=== PATIENT | female | born 1935 | race Caucasian/White ===

== ENCOUNTER 2019-01-31 10:40 | Inpatient (IN) ==
[2019-01-31 13:23] LABS: Basophils # (auto) 0.02 K/uL (0-0.2); Basophils % (auto) 0.5 %; Eosinophils # (auto) 0.02 K/uL (0-0.5); Eosinophils % (auto) 0.5 %; Hematocrit (blood only) 33.3 % (37-47); Hemoglobin 11.1 g/dL (12.0-16.0); Lymphocytes # (auto) 1.03 K/uL (1.2-3.4); Lymphocytes % (auto) 24.9 %; Mean Corpuscular Hemoglobin 30.5 pg (25-34); Mean Corpuscular Hgb Conc 33.3 g/dL (32-36); Mean Corpuscular Volume 91.5 fL (80-100); Monocytes # (auto) 0.21 K/uL (0.11-0.59); Monocytes % (auto) 5.1 %; Neutrophils # (auto) 2.86 K/uL (1.4-6.5); Platelet Count 176 K/uL (130-400); RDW Coefficient of Variation 13.2 % (11.5-14.5); RDW Standard Deviation 43.9 fL (36.4-46.3); Red Blood Count 3.64 M/uL (4.2-5.4); White Blood Count 4.14 K/uL (4.8-10.8)
--- NOTE | 2019-01-31 13:29 | XRay Report ---
XR chest 1V portable CLINICAL HISTORY: Atypical chest pain COMPARISON STUDY: No previous studies for comparison. FINDINGS: The heart is the upper limits of normal in size. The patient is mildly hyperinflated. There is no focal pulmonary consolidation. There is no failure. There are no pleural effusions. There is a thoracic dextroscoliosis. Arthritic changes are present within the shoulders.[ IMPRESSION: No active disease in the chest. Electronically signed by: Barak Valles M.D. 01/31/2019 1:28 PM
[2019-01-31 13:33] LABS: Prothrombin Time 10.7 Seconds (9.0-12.0)
[2019-01-31 13:48] LABS: Alanine Aminotransferase 20 U/L (12-78); Albumin Level 3.2 gm/dl (3.4-5.0); Aspartate Aminotransferase 15 U/L (15-37); BUN Creatinine Ratio 18.4 (10-20); Blood Urea Nitrogen 11 mg/dl (7-18); Calcium 8.5 mg/dl (8.5-10.1); Carbon Dioxide 26 mmol/L (21-32); Chloride 110 mmol/L (98-107); Creatinine Clr Calc Pharmacy 77.3 ml/min; Est GFR (African American) 98.8; Est GFR (Non-African American) 85.2; Glucose 99 mg/dl (70-99); Lipase 75 U/L (73-393); Magnesium 2.1 mg/dl (1.8-2.4); Potassium 3.6 mmol/L (3.5-5.1); Sodium 143 mmol/L (136-145)
[2019-01-31 13:59] LABS: Albumin Globulin Ratio 0.9 (0.9-2); Alkaline Phosphatase 108 U/L (45-117); Bilirubin,Total 0.7 mg/dl (0.2-1); Globulin 3.4 gm/dl (2.5-4.0); Phosphorus 2.1 mg/dl (2.5-4.9); Thyroid Stimulating Hormone 0.255 uIu/ml (0.300-4.500); Total Protein 6.6 gm/dl (6.4-8.2); Troponin I < 0.015 ng/ml (0-0.045)
[2019-01-31 14:10] LABS: T4 Free Thyroxine 1.36 ng/dl (0.8-1.6)
[2019-01-31 14:13] LABS: Appearance Urine Clear (Clear); Bilirubin Urine Negative (Negative); Blood Urine Negative (Negative); Color Urine Yellow; Glucose Urine UA Negative (Negative); Ketones Urine 2+ (Negative); Leukocyte Esterase Urine Negative (Negative); Nitrite Urine Negative (Negative); Protein Urine Negative (Negative); Specific Gravity Urine 1.015 (1.000-1.030); Urobilinogen Urine Negative (Negative)
[2019-01-31] MEDS ORDERED: POT PHOSPHATE MONOBASIC W/ SOD TAB PO STA (14:13)
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
[2019-01-31] MEDS ORDERED: OXYCODONE/ACETAMINOPHEN 5mg/325mg TAB PO PRN (22:13)
[2019-01-31] MEDS ORDERED: POLYETHYLENE (MIRALAX) 17 GM PACK PO PRN (22:13)
[2019-01-31] MEDS ORDERED: ONDANSETRON INJ 2 MG/ML 2 ML VIAL IV PRN (22:13)
[2019-01-31] MEDS ORDERED: ZOLPIDEM TARTRATE 5 MG TAB PO PRN (22:13)
[2019-01-31] MEDS ORDERED: ALUMINUM/MAGNESIUM SUSP 30 ML UDC PO PRN (22:13)
[2019-01-31] MEDS ORDERED: MAGNESIUM HYDROXIDE SUSP 30 ML UDC PO PRN (22:13)
[2019-01-31] MEDS: clonazePAM 1 MG TAB PO SCH (23:34)
[2019-01-31] MEDS: cloNIDine HCL 0.1 MG TAB PO SCH (23:34)
[2019-01-31] MEDS: carvediloL 12.5 MG TAB PO SCH (23:34)
[2019-01-31] MEDS: ENOXAPARIN INJ 40 MG/0.4 ML SYR SQ SCH (23:41)
[2019-02-01 04:24] LABS: Basophils # (auto) 0.02 K/uL (0-0.2); Basophils % (auto) 0.4 %; Eosinophils # (auto) 0.06 K/uL (0-0.5); Eosinophils % (auto) 1.2 %; Hematocrit (blood only) 32.1 % (37-47); Hemoglobin 10.7 g/dL (12.0-16.0); Lymphocytes # (auto) 2.03 K/uL (1.2-3.4); Mean Corpuscular Hemoglobin 30.8 pg (25-34); Mean Corpuscular Hgb Conc 33.3 g/dL (32-36); Mean Corpuscular Volume 92.5 fL (80-100); Mean Platelet Volume 9.9 fL (7.4-10.4); Monocytes # (auto) 0.42 K/uL (0.11-0.59); Monocytes % (auto) 8.7 %; Neutrophils % (auto) 47.7 %; Platelet Count 173 K/uL (130-400); RDW Coefficient of Variation 13.3 % (11.5-14.5); RDW Standard Deviation 44.8 fL (36.4-46.3); Red Blood Count 3.47 M/uL (4.2-5.4); White Blood Count 4.83 K/uL (4.8-10.8)
[2019-02-01 04:41] LABS: Alanine Aminotransferase 19 U/L (12-78); Albumin Level 2.9 gm/dl (3.4-5.0); Aspartate Aminotransferase 16 U/L (15-37); BUN Creatinine Ratio 16.1 (10-20); Blood Urea Nitrogen 10 mg/dl (7-18); Calcium 8.1 mg/dl (8.5-10.1); Carbon Dioxide 27 mmol/L (21-32); Chloride 112 mmol/L (98-107); Creatinine Clr Calc Pharmacy 70.7 ml/min; Est GFR (African American) 95.6; Est GFR (Non-African American) 82.5; Glucose 98 mg/dl (70-99); Potassium 3.6 mmol/L (3.5-5.1); Sodium 146 mmol/L (136-145)
[2019-02-01 04:50] LABS: Alkaline Phosphatase 94 U/L (45-117); Bilirubin,Total 0.5 mg/dl (0.2-1); Chol HDL Ratio 3; Cholesterol 119 mg/dl (0-200); HDL Cholesterol 44 mg/dl; LDL Cholesterol Calculated 58 mg/dl; NT Pro B Type Natriuretic Pept 283 pg/ml (0-1800); Phosphorus 3.6 mg/dl (2.5-4.9); Total Protein 5.9 gm/dl (6.4-8.2); Triglycerides 85 mg/dl (0-150); Troponin I < 0.015 ng/ml (0-0.045); VLDL Cholesterol 17 mg/dl
[2019-02-01 06:30] LABS: Estimated Average Glucose 114 mg/dl; Hemoglobin A1C 5.6 % (4.5-5.6)
[2019-02-01] MEDS ORDERED: PERFLUTREN LIPID MICROSPHERE (DEFINITY) IV ONE (07:04)
[2019-02-01] MEDS: carvediloL 12.5 MG TAB PO SCH (08:40)
[2019-02-01] MEDS: cloNIDine HCL 0.1 MG TAB PO SCH ×2 (08:40→14:23)
[2019-02-01] MEDS: clonazePAM 1 MG TAB PO SCH (08:40)
[2019-02-01] MEDS: FLUTICASONE PROPIONATE NA SPR 16 GM BTL NAE SCH (08:40)
[2019-02-01] MEDS: ISOSORBIDE MONO EXTENDED REL 30 MG TABCR PO SCH (08:41)
[2019-02-01] MEDS: ATORVASTATIN 20 MG TAB PO SCH (08:41)
[2019-02-01] MEDS: SPIRONOLACTONE 25 MG TAB PO SCH (08:41)
[2019-02-01] MEDS: PANTOprazole 40 MG TAB PO SCH (08:41)
[2019-02-01] MEDS: ESCITALOPRAM OXALATE 10 MG TAB PO SCH (08:42)
[2019-02-01] MEDS: TRAMADOL HCL 50 MG TABLET PO PRN (08:50)
[2019-02-01] MEDS ORDERED: INFLUENZA ADMINISTRATION CHARGE ONE (09:00)
[2019-02-01] MEDS ORDERED: ERGOCALCIFEROL 50,000 UNITS CAP PO SCH (09:00)
[2019-02-01] MEDS ORDERED: INFLUENZA VIRUS QUAD VACCINE 0.5 ML SYR IM ONE (09:00)
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
[2019-02-01] MEDS ORDERED: clonazePAM 1 MG TAB PO PRN (15:47)
[2019-02-01] MEDS: carvediloL 3.125 MG TAB PO SCH (21:08)
[2019-02-01] MEDS: ENOXAPARIN INJ 40 MG/0.4 ML SYR SQ SCH (21:09)
[2019-02-02 07:42] LABS: BUN Creatinine Ratio 22.9 (10-20); Calcium 8.7 mg/dl (8.5-10.1); Creatinine Clr Calc Pharmacy 72.2 ml/min; Est GFR (African American) 96.1; Est GFR (Non-African American) 82.9; Potassium 3.9 mmol/L (3.5-5.1)
[2019-02-02] MEDS: PANTOprazole 40 MG TAB PO SCH (08:56)
[2019-02-02] MEDS: ESCITALOPRAM OXALATE 10 MG TAB PO SCH (08:56)
[2019-02-02] MEDS: SPIRONOLACTONE 25 MG TAB PO SCH (08:56)
[2019-02-02] MEDS: FLUTICASONE PROPIONATE NA SPR 16 GM BTL NAE SCH (08:56)
[2019-02-02] MEDS: carvediloL 3.125 MG TAB PO SCH ×2 (08:56→20:41)
[2019-02-02] MEDS: ISOSORBIDE MONO EXTENDED REL 30 MG TABCR PO SCH (08:56)
[2019-02-02] MEDS: ATORVASTATIN 20 MG TAB PO SCH (08:57)
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
[2019-02-02] MEDS: TRAMADOL HCL 50 MG TABLET PO PRN (20:41)
[2019-02-02] MEDS: ENOXAPARIN INJ 40 MG/0.4 ML SYR SQ SCH (22:32)
[2019-02-03] MEDS: PANTOprazole 40 MG TAB PO SCH (09:07)
[2019-02-03] MEDS: ISOSORBIDE MONO EXTENDED REL 30 MG TABCR PO SCH (09:07)
[2019-02-03] MEDS: ATORVASTATIN 20 MG TAB PO SCH (09:07)
[2019-02-03] MEDS: SPIRONOLACTONE 25 MG TAB PO SCH (09:08)
[2019-02-03] MEDS: FLUTICASONE PROPIONATE NA SPR 16 GM BTL NAE SCH (09:08)
[2019-02-03] MEDS: carvediloL 3.125 MG TAB PO SCH ×2 (09:08→20:25)
[2019-02-03] MEDS: ESCITALOPRAM OXALATE 10 MG TAB PO SCH (09:08)
[2019-02-03] MEDS ORDERED: DICLOFENAC SOD 1% GEL 100 GM TUBE EXT STA (14:08)
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
[2019-02-03] MEDS: TRAMADOL HCL 50 MG TABLET PO PRN (20:29)
[2019-02-04] MEDS: PANTOprazole 40 MG TAB PO SCH (09:14)
[2019-02-04] MEDS: ESCITALOPRAM OXALATE 10 MG TAB PO SCH (09:14)
[2019-02-04] MEDS: ATORVASTATIN 20 MG TAB PO SCH (09:14)
[2019-02-04] MEDS: ISOSORBIDE MONO EXTENDED REL 30 MG TABCR PO SCH (09:14)
[2019-02-04] MEDS: carvediloL 3.125 MG TAB PO SCH (09:15)
[2019-02-04] MEDS: SPIRONOLACTONE 25 MG TAB PO SCH (09:15)
[2019-02-04] MEDS: FLUTICASONE PROPIONATE NA SPR 16 GM BTL NAE SCH (09:16)
[2019-02-04] MEDS: DICLOFENAC SOD 1% GEL 100 GM TUBE EXT SCH ×2 (09:59→20:25)
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
[2019-02-04] MEDS: ACETAMINOPHEN 325 MG TAB PO PRN ×2 (15:29→23:57)
[2019-02-04] MEDS: carvediloL 6.25 MG TAB PO SCH (20:24)
[2019-02-04] MEDS: TRAMADOL HCL 50 MG TABLET PO PRN (20:29)
[2019-02-05 08:29] LABS: Hematocrit (blood only) 36.5 % (37-47); Hemoglobin 12.1 g/dL (12.0-16.0); Mean Corpuscular Hemoglobin 30.5 pg (25-34); Mean Corpuscular Hgb Conc 33.2 g/dL (32-36); Mean Corpuscular Volume 91.9 fL (80-100); Mean Platelet Volume 10.3 fL (7.4-10.4); Platelet Count 189 K/uL (130-400); RDW Coefficient of Variation 13.3 % (11.5-14.5); RDW Standard Deviation 44.1 fL (36.4-46.3); Red Blood Count 3.97 M/uL (4.2-5.4); White Blood Count 4.56 K/uL (4.8-10.8)
[2019-02-05] MEDS: ISOSORBIDE MONO EXTENDED REL 30 MG TABCR PO SCH (08:34)
[2019-02-05] MEDS: FLUTICASONE PROPIONATE NA SPR 16 GM BTL NAE SCH (08:34)
[2019-02-05] MEDS: ATORVASTATIN 20 MG TAB PO SCH (08:34)
[2019-02-05] MEDS: SPIRONOLACTONE 25 MG TAB PO SCH (08:34)
[2019-02-05] MEDS: PANTOprazole 40 MG TAB PO SCH (08:34)
[2019-02-05] MEDS: carvediloL 6.25 MG TAB PO SCH (08:34)
[2019-02-05] MEDS: DICLOFENAC SOD 1% GEL 100 GM TUBE EXT SCH (08:35)
[2019-02-05] MEDS: ESCITALOPRAM OXALATE 10 MG TAB PO SCH (08:35)
[2019-02-05 08:44] LABS: BUN Creatinine Ratio 23.8 (10-20); Calcium 9.2 mg/dl (8.5-10.1); Creatinine Clr Calc Pharmacy 66.9 ml/min; Est GFR (African American) 93.8; Est GFR (Non-African American) 80.9; Potassium 4.2 mmol/L (3.5-5.1)
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
== END 2019-02-05 14:34 | disposition home or self-care (01) | DRG 313 ==
LOC: ED 10:40 → 2S 10:40 → SUATTDRO 20:38 → 2S 21:36 → 3W 02-02 13:43 → SUATTDRO 02-02 16:23
DX: F32.9 Major depressive disorder, single episode, unspecified; K21.9 Gastro-esophageal reflux disease without esophagitis; G89.4 Chronic pain syndrome; R07.89 Other chest pain; I25.10 Atherosclerotic heart disease of native coronary artery without angina pectoris; I10 Essential (primary) hypertension